=== PATIENT | female | born 1960 | race Caucasian/White ===

== ENCOUNTER 2020-06-11 20:15 | Inpatient (IN) | payer BC, MEDICAID ==
[~2020-06-11] VITALS: Ht 167.6 cm; Wt 157.9 kg
[2020-06-11] MEDS ORDERED: ACETAMINOPHEN 325 MG TAB PO ONE (20:30)
[2020-06-11 22:26] LABS: Platelet Count (auto) 35 10^3/uL (140-450)
[2020-06-11 22:28] LABS: Hematocrit 45.7 % (36.0-46.0); Hemoglobin 15.5 g/dL (12.2-16.2); Mean Corpuscular Hemoglobin 32.2 pg (28.0-32.0); Mean Corpuscular Hgb Conc. 33.8 g/dL (32.0-36.0); Mean Corpuscular Volume 95.1 fL (80.0-100.0); Red Cell Distribution Width 14.9 % (11.8-14.3)
[2020-06-11 22:35] LABS: Basophils % (manual) 0 (0.0-2.0); Blast Cells 0; Eosinophils % (manual) 0 (0-7); Metamyelocytes % 0; Promyelocytes % 0; Reactive Lymphocytes 0; White Blood Cell 1.9 10^3/uL (4.4-10.8)
[2020-06-11] MEDS ORDERED: AZITHROMYCIN 500MG/ 250ML 250 ML IV ONE (22:45)
[2020-06-11] MEDS ORDERED: methylPREDNISolone SOD SUCC 125 MG/2 ML VL IM ONE (22:45)
[2020-06-11 22:52] LABS: Albumin 2.6 g/dL (3.4-5.0); Anion Gap 2 (5-15); BUN/Creatinine Ratio 17.2; Blood Urea Nitrogen 11 mg/dL (7-18); Calcium 8.6 mg/dL (8.5-10.1); Carbon Dioxide 31 mmol/L (21-32); Chloride 107 mmol/L (98-107); GFR African American 123 mL/min; GFR Non-African American 101 mL/min; Glucose 96 mg/dL (74-106); Magnesium 1.5 mg/dL (1.6-2.6); Potassium 4.5 mmol/L (3.5-5.1); Sodium 140 mmol/L (136-145)
[2020-06-11 22:57] LABS: Alanine Aminotransferase 30 U/L (13-56); Alkaline Phosphatase 105 U/L (45-117); Aspartate Aminotransferase 72 U/L (15-37); Bilirubin, Total 1.6 mg/dL (0.2-1.0); Total Protein 7.5 g/dL (6.4-8.2)
[2020-06-11 22:58] LABS: Band Neutrophils % (manual) 2; Lymphocytes % (manual) 6 (10.0-50.0); Monocytes % (manual) 8 (0-12); Myelocytes % 2
[2020-06-11 23:12] LABS: INR 1.17 (0.9-1.15)
[2020-06-11] MEDS ORDERED: ONDANSETRON HCL 4 MG/2 ML VIAL IV PRN (23:45)
[2020-06-12] MEDS: cefTRIAXone 1GM/50ML D5W 50 ML IV SCH ×2 (02:35→23:02)
[2020-06-12 07:24] LABS: Basophils # (auto) 0 10 ^3/uL (0-0.2); Basophils % (auto) 0.2 % (0.0-2.0); Eosinophils # (auto) 0 10 ^3/uL (0-0.8); Eosinophils % (auto) 0.1 % (0.0-7.0); Lymphocytes # (auto) 0.2 10 ^3/uL (0.4-5.4); Monocytes # (auto) 0.1 10 ^3/uL (0-1.3); Monocytes % (auto) 4.6 % (0.0-12.0); Neutrophils # (auto) 1.4 10 ^3/uL (1.6-8.6); Nucleated Red Blood Cells % 0.3 %; Red Blood Cells 4.77 10^6/uL (4.0-5.20)
[2020-06-12 07:27] LABS: Hematocrit 45.1 % (36.0-46.0); Hemoglobin 15.2 g/dL (12.2-16.2); Lymphocytes % (auto) 11.1 % (10.0-50.0); Mean Corpuscular Hemoglobin 31.9 pg (28.0-32.0); Mean Corpuscular Hgb Conc. 33.8 g/dL (32.0-36.0); Mean Corpuscular Volume 94.6 fL (80.0-100.0); Platelet Count (auto) 32 10^3/uL (140-450); Red Cell Distribution Width 14.5 % (11.8-14.3)
[2020-06-12 07:39] LABS: White Blood Cell 1.6 10^3/uL (4.4-10.8)
[2020-06-12 07:42] LABS: BUN/Creatinine Ratio 19.4; Potassium 4.5 mmol/L (3.5-5.1)
[2020-06-12 08:06] LABS: Calcium 8.3 mg/dL (8.5-10.1)
[2020-06-12] MEDS: CHOLECALCIFEROL (VITD3) 2,000 UNIT CAP PO SCH (10:36)
[2020-06-12] MEDS: DexAMETHasone SOD PHOS 10MG/1ML VIAL INJ IV SCH (10:36)
[2020-06-12] MEDS: ZINC SULFATE 220mg CAP or TAB PO SCH (10:36)
[2020-06-12] MEDS: ASCORBIC ACID 500 MG TAB PO SCH ×2 (10:36→23:03)
[2020-06-12 15:55] LABS: Urine Bacteria FEW /hpf (None Seen); Urine Blood Negative /uL (Negative); Urine Hyaline Cast FEW /lpf (0 - 2); Urine Mucus FEW (None Seen); Urine Specific Gravity 1.033 (1.001-1.035); Urine WBC 11 /hpf (0 - 5)
[2020-06-12] MEDS: AZITHROMYCIN 500MG/ 250ML 250 ML IV SCH (23:03)
[2020-06-13 00:20] VITALS: BP 113/48
[2020-06-13] MEDS: ACETAMINOPHEN 325 MG TAB PO PRN ×2 (06:40→14:32)
[2020-06-13 07:25] LABS: Basophils # (auto) 0 10 ^3/uL (0-0.2); Eosinophils # (auto) 0 10 ^3/uL (0-0.8); Lymphocytes # (auto) 0.2 10 ^3/uL (0.4-5.4); Mean Corpuscular Hemoglobin 32.2 pg (28.0-32.0); Monocytes # (auto) 0.2 10 ^3/uL (0-1.3); Neutrophils # (auto) 3.3 10 ^3/uL (1.6-8.6)
[2020-06-13 07:28] LABS: Hematocrit 41.9 % (36.0-46.0); Hemoglobin 14.3 g/dL (12.2-16.2); Mean Corpuscular Volume 94.7 fL (80.0-100.0); Nucleated Red Blood Cells % 0.1 %; Platelet Count (auto) 38 10^3/uL (140-450); Red Blood Cells 4.43 10^6/uL (4.0-5.20); Red Cell Distribution Width 14.4 % (11.8-14.3); White Blood Cell 3.7 10^3/uL (4.4-10.8)
[2020-06-13 07:55] LABS: Potassium 4.8 mmol/L (3.5-5.1)
[2020-06-13 08:00] VITALS: BP 130/66
[2020-06-13 08:07] LABS: BUN/Creatinine Ratio 28.3; Calcium 8.5 mg/dL (8.5-10.1); Magnesium 2.1 mg/dL (1.6-2.6)
[2020-06-13] MEDS ORDERED: REMDESIVIR PER PHARMACY 0 ML IV SCH (09:15)
[2020-06-13] MEDS: ZINC SULFATE 220mg CAP or TAB PO SCH (10:20)
[2020-06-13] MEDS: CHOLECALCIFEROL (VITD3) 2,000 UNIT CAP PO SCH (10:20)
[2020-06-13] MEDS: DexAMETHasone SOD PHOS 10MG/1ML VIAL INJ IV SCH (10:20)
[2020-06-13] MEDS: ASCORBIC ACID 500 MG TAB PO SCH ×2 (10:20→21:11)
[2020-06-13 10:46] LABS: Albumin 2.3 g/dL (3.4-5.0); Bilirubin, Direct 0.5 mg/dL (0-0.2); Total Protein 7.2 g/dL (6.4-8.2)
[2020-06-13] MEDS ORDERED: REMDESIVIR 200 MG in NS 210ml LOADING DOSE ADULT IV ONE (15:00)
[2020-06-13 16:00] VITALS: BP 131/86
[2020-06-13] MEDS: cefTRIAXone 1GM/50ML D5W 50 ML IV SCH (21:11)
[2020-06-13] MEDS: AZITHROMYCIN 500MG/ 250ML 250 ML IV SCH (21:12)
[2020-06-14] VITALS: BP 134/78
[2020-06-14] MEDS: ACETAMINOPHEN 325 MG TAB PO PRN ×2 (03:43→10:06)
[2020-06-14 06:11] LABS: Basophils # (auto) 0 10 ^3/uL (0-0.2); Eosinophils # (auto) 0 10 ^3/uL (0-0.8); Hemoglobin 14.6 g/dL (12.2-16.2); Mean Corpuscular Hemoglobin 31.4 pg (28.0-32.0); Mean Corpuscular Volume 95.1 fL (80.0-100.0); Monocytes # (auto) 0.3 10 ^3/uL (0-1.3); White Blood Cell 3.9 10^3/uL (4.4-10.8)
[2020-06-14 06:14] LABS: Basophils % (auto) 0.9 % (0.0-2.0); Eosinophils % (auto) 0.1 % (0.0-7.0); Hematocrit 44.3 % (36.0-46.0); Lymphocytes # (auto) 0.2 10 ^3/uL (0.4-5.4); Monocytes % (auto) 7.1 % (0.0-12.0); Neutrophils # (auto) 3.4 10 ^3/uL (1.6-8.6); Neutrophils % (auto) 85.9 % (37.0-80.0); Nucleated Red Blood Cells % 0.8 %; Platelet Count (auto) 51 10^3/uL (140-450); Red Blood Cells 4.66 10^6/uL (4.0-5.20); Red Cell Distribution Width 14.6 % (11.8-14.3)
[2020-06-14 06:30] LABS: Calcium 8.6 mg/dL (8.5-10.1); Magnesium 2.2 mg/dL (1.6-2.6); Potassium 4.6 mmol/L (3.5-5.1)
[2020-06-14 06:32] LABS: BUN/Creatinine Ratio 28.8
[2020-06-14 08:00] VITALS: BP 112/78
[2020-06-14] MEDS: ZINC SULFATE 220mg CAP or TAB PO SCH (08:29)
[2020-06-14] MEDS: DexAMETHasone SOD PHOS 10MG/1ML VIAL INJ IV SCH (08:29)
[2020-06-14] MEDS: ASCORBIC ACID 500 MG TAB PO SCH ×2 (08:30→21:29)
[2020-06-14] MEDS: CHOLECALCIFEROL (VITD3) 2,000 UNIT CAP PO SCH (08:30)
[2020-06-14] MEDS: ALBUTEROL SULF HFA 90MCG INH 200DOSE IN PRN ×2 (10:27→10:29)
[2020-06-14] MEDS ORDERED: FUROSEMIDE 40 MG/4 ML VIAL IV ONE (14:45)
[2020-06-14] MEDS: REMDESIVIR 100 MG in SODIUM CHL 0.9% 250 ML IV SCH (15:58)
[2020-06-14 16:00] VITALS: BP 138/87
[2020-06-14] MEDS: cefTRIAXone 1GM/50ML D5W 50 ML IV SCH (21:29)
[2020-06-14] MEDS: AZITHROMYCIN 500MG/ 250ML 250 ML IV SCH (22:17)
[2020-06-15] VITALS: BP 117/63
[2020-06-15 08:00] VITALS: BP 127/79
[2020-06-15] MEDS: ALBUTEROL SULF HFA 90MCG INH 200DOSE IN PRN ×2 (08:09→19:24)
[2020-06-15 09:32] LABS: Albumin 2.4 g/dL (3.4-5.0); Calcium 8.6 mg/dL (8.5-10.1); Potassium 5.1 mmol/L (3.5-5.1)
[2020-06-15] MEDS: ZINC SULFATE 220mg CAP or TAB PO SCH (09:38)
[2020-06-15] MEDS: ASCORBIC ACID 500 MG TAB PO SCH ×2 (09:38→21:01)
[2020-06-15] MEDS: CHOLECALCIFEROL (VITD3) 2,000 UNIT CAP PO SCH (09:39)
[2020-06-15] MEDS: DexAMETHasone SOD PHOS 10MG/1ML VIAL INJ IV SCH (09:39)
[2020-06-15 10:32] LABS: BUN/Creatinine Ratio 21.4; Bilirubin, Total 1.3 mg/dL (0.2-1.0); Total Protein 7.3 g/dL (6.4-8.2)
[2020-06-15] MEDS: ACETAMINOPHEN 325 MG TAB PO PRN (13:54)
[2020-06-15 16:00] VITALS: BP 117/62
[2020-06-15] MEDS: REMDESIVIR 100 MG in SODIUM CHL 0.9% 250 ML IV SCH (16:17)
[2020-06-15] MEDS: cefTRIAXone 1GM/50ML D5W 50 ML IV SCH (21:01)
[2020-06-15] MEDS: AZITHROMYCIN 500MG/ 250ML 250 ML IV SCH (21:46)
[2020-06-16] VITALS: BP 117/71
[2020-06-16] MEDS: ALBUTEROL SULF HFA 90MCG INH 200DOSE IN PRN (07:14)
[2020-06-16 07:18] LABS: Basophils # (auto) 0 10 ^3/uL (0-0.2); Basophils % (auto) 0.1 % (0.0-2.0); Eosinophils # (auto) 0 10 ^3/uL (0-0.8); Hemoglobin 14.4 g/dL (12.2-16.2); Lymphocytes # (auto) 0.2 10 ^3/uL (0.4-5.4); Neutrophils # (auto) 2.1 10 ^3/uL (1.6-8.6); Nucleated Red Blood Cells % 0.1 %
[2020-06-16 07:22] LABS: Hematocrit 42.8 % (36.0-46.0); Lymphocytes % (auto) 8.1 % (10.0-50.0); Mean Corpuscular Hemoglobin 31.6 pg (28.0-32.0); Mean Corpuscular Hgb Conc. 33.7 g/dL (32.0-36.0); Mean Corpuscular Volume 93.7 fL (80.0-100.0); Monocytes # (auto) 0.2 10 ^3/uL (0-1.3); Monocytes % (auto) 8.6 % (0.0-12.0); Neutrophils % (auto) 83.2 % (37.0-80.0); Platelet Count (auto) 42 10^3/uL (140-450); Red Blood Cells 4.57 10^6/uL (4.0-5.20); Red Cell Distribution Width 14.5 % (11.8-14.3); White Blood Cell 2.5 10^3/uL (4.4-10.8)
[2020-06-16 08:00] VITALS: BP 93/59
[2020-06-16 08:14] LABS: Potassium 4.3 mmol/L (3.5-5.1)
[2020-06-16 08:45] LABS: Albumin 2.4 g/dL (3.4-5.0); BUN/Creatinine Ratio 31.4; Bilirubin, Total 1.6 mg/dL (0.2-1.0); Calcium 8.6 mg/dL (8.5-10.1); Magnesium 2.2 mg/dL (1.6-2.6); Total Protein 6.7 g/dL (6.4-8.2)
[2020-06-16] MEDS: FUROSEMIDE 40 MG/4 ML VIAL IV ONE ×2 (09:35→10:43)
[2020-06-16] MEDS: CHOLECALCIFEROL (VITD3) 2,000 UNIT CAP PO SCH (09:36)
[2020-06-16] MEDS: DexAMETHasone SOD PHOS 10MG/1ML VIAL INJ IV SCH (09:36)
[2020-06-16] MEDS: ENOXAPARIN SOD 40 MG/0.4 ML SYRINGE SC SCH ×2 (09:36→10:00)
[2020-06-16] MEDS: ASCORBIC ACID 500 MG TAB PO SCH ×2 (09:36→21:52)
[2020-06-16] MEDS: ZINC SULFATE 220mg CAP or TAB PO SCH (09:36)
[2020-06-16] MEDS: REMDESIVIR 100 MG in SODIUM CHL 0.9% 250 ML IV SCH (15:18)
[2020-06-16 16:00] VITALS: BP 137/89
[2020-06-16] MEDS: cefTRIAXone 1GM/50ML D5W 50 ML IV SCH (21:51)
[2020-06-16] MEDS: AZITHROMYCIN 500MG/ 250ML 250 ML IV SCH (21:52)
[2020-06-16] MEDS: ACETAMINOPHEN 325 MG TAB PO PRN (22:29)
[2020-06-16 23:51] VITALS: BP 119/69
[2020-06-16 23:52] VITALS: BP 119/69
[2020-06-17 08:00] VITALS: BP 95/56
[2020-06-17 08:01] LABS: Albumin 2.3 g/dL (3.4-5.0); Calcium 8.3 mg/dL (8.5-10.1); Potassium 4.3 mmol/L (3.5-5.1)
[2020-06-17 08:27] LABS: Basophils # (auto) 0 10 ^3/uL (0-0.2); Bilirubin, Total 1.8 mg/dL (0.2-1.0); Eosinophils # (auto) 0 10 ^3/uL (0-0.8); Hemoglobin 14.7 g/dL (12.2-16.2); Lymphocytes # (auto) 0.2 10 ^3/uL (0.4-5.4); Monocytes # (auto) 0.4 10 ^3/uL (0-1.3); Monocytes % (auto) 12.7 % (0.0-12.0); Neutrophils # (auto) 2.8 10 ^3/uL (1.6-8.6); Nucleated Red Blood Cells % 0.2 %; Total Protein 6.6 g/dL (6.4-8.2)
[2020-06-17 08:29] LABS: Basophils % (auto) 0.2 % (0.0-2.0); Eosinophils % (auto) 0.1 % (0.0-7.0); Hematocrit 43.8 % (36.0-46.0); Lymphocytes % (auto) 5.9 % (10.0-50.0); Mean Corpuscular Hemoglobin 31.7 pg (28.0-32.0); Mean Corpuscular Hgb Conc. 33.7 g/dL (32.0-36.0); Mean Corpuscular Volume 94.2 fL (80.0-100.0); Neutrophils % (auto) 81.1 % (37.0-80.0); Red Blood Cells 4.64 10^6/uL (4.0-5.20); Red Cell Distribution Width 14.1 % (11.8-14.3); White Blood Cell 3.4 10^3/uL (4.4-10.8)
[2020-06-17 08:35] LABS: Platelet Count (auto) 44 10^3/uL (140-450)
[2020-06-17] MEDS: ENOXAPARIN SOD 40 MG/0.4 ML SYRINGE SC SCH (10:00)
[2020-06-17] MEDS ORDERED: FUROSEMIDE 40 MG/4 ML VIAL IV SCH (10:00)
[2020-06-17] MEDS: DexAMETHasone SOD PHOS 10MG/1ML VIAL INJ IV SCH (10:03)
[2020-06-17] MEDS: ASCORBIC ACID 500 MG TAB PO SCH ×2 (10:03→21:38)
[2020-06-17] MEDS: ZINC SULFATE 220mg CAP or TAB PO SCH (10:03)
[2020-06-17] MEDS: CHOLECALCIFEROL (VITD3) 2,000 UNIT CAP PO SCH (10:04)
[2020-06-17] MEDS: REMDESIVIR 100 MG in SODIUM CHL 0.9% 250 ML IV SCH (15:36)
[2020-06-17 16:00] VITALS: BP 151/83
[2020-06-17 16:09] VITALS: BP 151/83
[2020-06-17] MEDS: ALBUTEROL SULF HFA 90MCG INH 200DOSE IN PRN (18:22)
[2020-06-17] MEDS: AZITHROMYCIN 500MG/ 250ML 250 ML IV SCH (21:38)
[2020-06-17] MEDS: cefTRIAXone 1GM/50ML D5W 50 ML IV SCH (23:07)
[2020-06-17 23:44] VITALS: BP 120/67
[2020-06-18 07:30] VITALS: BP 114/69
[2020-06-18 08:00] VITALS: BP 114/69
[2020-06-18] MEDS: ENOXAPARIN SOD 40 MG/0.4 ML SYRINGE SC SCH (10:00)
[2020-06-18] MEDS: ASCORBIC ACID 500 MG TAB PO SCH ×2 (10:03→21:13)
[2020-06-18] MEDS: DexAMETHasone SOD PHOS 10MG/1ML VIAL INJ IV SCH (10:03)
[2020-06-18] MEDS: CHOLECALCIFEROL (VITD3) 2,000 UNIT CAP PO SCH (10:03)
[2020-06-18] MEDS: ZINC SULFATE 220mg CAP or TAB PO SCH (10:03)
[2020-06-18 16:00] VITALS: BP 125/71
[2020-06-18] MEDS: SPIRONOLACTONE 25 MG TAB PO SCH (17:33)
[2020-06-18] MEDS: rifAXIMin 550 MG TAB PO SCH (17:33)
[2020-06-18] MEDS: ALBUTEROL SULF HFA 90MCG INH 200DOSE IN PRN (17:38)
[2020-06-18] MEDS: cefTRIAXone 1GM/50ML D5W 50 ML IV SCH (20:59)
[2020-06-18] MEDS: AZITHROMYCIN 500MG/ 250ML 250 ML IV SCH (21:13)
[2020-06-18] MEDS: FAMOTIDINE (10MG/ML) 2ML VL IV SCH (21:13)
[2020-06-19] VITALS: BP 123/59
[2020-06-19 07:08] LABS: Basophils # (auto) 0 10 ^3/uL (0-0.2); Eosinophils # (auto) 0 10 ^3/uL (0-0.8); Hematocrit 43.5 % (36.0-46.0); Hemoglobin 14.6 g/dL (12.2-16.2); Lymphocytes # (auto) 0.2 10 ^3/uL (0.4-5.4); Lymphocytes % (auto) 5.3 % (10.0-50.0); Mean Corpuscular Hemoglobin 31.6 pg (28.0-32.0); Mean Corpuscular Hgb Conc. 33.5 g/dL (32.0-36.0); Mean Corpuscular Volume 94.3 fL (80.0-100.0); Monocytes # (auto) 0.5 10 ^3/uL (0-1.3); Neutrophils # (auto) 3.4 10 ^3/uL (1.6-8.6); Neutrophils % (auto) 83.7 % (37.0-80.0); Nucleated Red Blood Cells % 0.1 %; Platelet Count (auto) 40 10^3/uL (140-450); Red Blood Cells 4.61 10^6/uL (4.0-5.20); Red Cell Distribution Width 14.2 % (11.8-14.3); White Blood Cell 4.1 10^3/uL (4.4-10.8)
[2020-06-19 07:10] LABS: Potassium 4.3 mmol/L (3.5-5.1)
[2020-06-19 07:27] LABS: INR 1.32 (0.9-1.15); Partial Thromboplastin Time 28.6 sec (23.0-31.2)
[2020-06-19 07:30] LABS: Albumin 2.3 g/dL (3.4-5.0); BUN/Creatinine Ratio 31.3; Bilirubin, Total 2.1 mg/dL (0.2-1.0); CRP High Sensitivity 0.34 mg/dL (< 0.3); Calcium 8.4 mg/dL (8.5-10.1); Total Protein 6.3 g/dL (6.4-8.2)
[2020-06-19 08:04] VITALS: BP 117/90
[2020-06-19] MEDS: LACTULOSE 20Gm/30ML SOLN PO SCH (10:40)
[2020-06-19] MEDS: FAMOTIDINE (10MG/ML) 2ML VL IV SCH ×2 (10:41→23:35)
[2020-06-19] MEDS: ZINC SULFATE 220mg CAP or TAB PO SCH (10:41)
[2020-06-19] MEDS: rifAXIMin 550 MG TAB PO SCH ×2 (10:41→22:28)
[2020-06-19] MEDS: ASCORBIC ACID 500 MG TAB PO SCH ×2 (10:41→22:28)
[2020-06-19] MEDS: DexAMETHasone SOD PHOS 10MG/1ML VIAL INJ IV SCH (10:41)
[2020-06-19] MEDS: CHOLECALCIFEROL (VITD3) 2,000 UNIT CAP PO SCH (10:42)
[2020-06-19] MEDS ORDERED: IOHEXOL 350 MG/ML 100ML IJ ONE (10:43)
[2020-06-19 16:10] VITALS: BP 123/84
[2020-06-19] MEDS: SPIRONOLACTONE 25 MG TAB PO SCH (17:49)
[2020-06-19 22:15] VITALS: BP 108/50
[2020-06-19] MEDS: AZITHROMYCIN 500MG/ 250ML 250 ML IV SCH (22:28)
[2020-06-19] MEDS: cefTRIAXone 1GM/50ML D5W 50 ML IV SCH (22:28)
[2020-06-20] VITALS: BP 108/50
[2020-06-20 08:00] VITALS: BP 97/56
[2020-06-20] MEDS: FAMOTIDINE (10MG/ML) 2ML VL IV SCH ×2 (09:44→21:37)
[2020-06-20] MEDS: CHOLECALCIFEROL (VITD3) 2,000 UNIT CAP PO SCH (09:44)
[2020-06-20] MEDS: DexAMETHasone SOD PHOS 10MG/1ML VIAL INJ IV SCH (09:44)
[2020-06-20] MEDS: rifAXIMin 550 MG TAB PO SCH ×2 (09:44→21:37)
[2020-06-20] MEDS: ZINC SULFATE 220mg CAP or TAB PO SCH (09:44)
[2020-06-20] MEDS: LACTULOSE 20Gm/30ML SOLN PO SCH ×2 (09:44→10:24)
[2020-06-20] MEDS: ASCORBIC ACID 500 MG TAB PO SCH ×2 (09:44→21:38)
[2020-06-20] MEDS: SPIRONOLACTONE 25 MG TAB PO SCH (18:01)
[2020-06-20] MEDS: AZITHROMYCIN 500MG/ 250ML 250 ML IV SCH (21:38)
[2020-06-20] MEDS: cefTRIAXone 1GM/50ML D5W 50 ML IV SCH (21:38)
[2020-06-21] VITALS: BP 109/69
[2020-06-21] MEDS: ALBUTEROL SULF HFA 90MCG INH 200DOSE IN PRN ×2 (07:07→18:52)
[2020-06-21 08:00] VITALS: BP 114/54
[2020-06-21] MEDS: DexAMETHasone SOD PHOS 10MG/1ML VIAL INJ IV SCH (09:02)
[2020-06-21] MEDS: FAMOTIDINE (10MG/ML) 2ML VL IV SCH ×2 (09:02→23:12)
[2020-06-21] MEDS: LACTULOSE 20Gm/30ML SOLN PO SCH (09:02)
[2020-06-21] MEDS: rifAXIMin 550 MG TAB PO SCH ×2 (09:03→23:13)
[2020-06-21] MEDS: ZINC SULFATE 220mg CAP or TAB PO SCH (09:03)
[2020-06-21] MEDS: ASCORBIC ACID 500 MG TAB PO SCH ×2 (09:03→23:12)
[2020-06-21] MEDS: CHOLECALCIFEROL (VITD3) 2,000 UNIT CAP PO SCH (10:00)
[2020-06-21] MEDS ORDERED: FURO40TA4 PO (15:54)
[2020-06-21] MEDS ORDERED: LACT10SO3 PO (15:54)
[2020-06-21] MEDS ORDERED: SPIR100T4 PO (15:54)
[2020-06-21] MEDS ORDERED: RIFA550T PO (15:54)
[2020-06-21] MEDS ORDERED: ALBUAER3 IN (15:55)
[2020-06-21 16:00] VITALS: BP 103/46
[2020-06-21] MEDS: SPIRONOLACTONE 25 MG TAB PO SCH (18:38)
[2020-06-21] MEDS: AZITHROMYCIN 500MG/ 250ML 250 ML IV SCH (23:12)
[2020-06-21] MEDS: cefTRIAXone 1GM/50ML D5W 50 ML IV SCH (23:12)
[2020-06-22] VITALS: BP 107/64
[2020-06-22 08:00] VITALS: BP 94/41
[2020-06-22] MEDS: ASCORBIC ACID 500 MG TAB PO SCH (09:51)
[2020-06-22] MEDS: ZINC SULFATE 220mg CAP or TAB PO SCH (09:51)
[2020-06-22] MEDS: LACTULOSE 20Gm/30ML SOLN PO SCH (09:51)
[2020-06-22] MEDS: rifAXIMin 550 MG TAB PO SCH (09:51)
[2020-06-22] MEDS: DexAMETHasone SOD PHOS 10MG/1ML VIAL INJ IV SCH (09:51)
[2020-06-22] MEDS: FAMOTIDINE (10MG/ML) 2ML VL IV SCH (09:51)
[2020-06-22] MEDS: CHOLECALCIFEROL (VITD3) 2,000 UNIT CAP PO SCH (09:51)
[2020-06-22 16:00] VITALS: BP 128/57
[2020-06-22] MEDS: SPIRONOLACTONE 25 MG TAB PO SCH ×2 (17:59→18:00)
== END 2020-06-22 20:35 | disposition home health service (06) | DRG 137 ==
LOC: EDBD 20:15 → ER 20:15 → TELE 20:16 → TELE-WESTW 06-12 22:44
PROVIDERS: ADMIT Hospitalist; ATTEND Hospitalist
PROC: XW033E5 Introduction of Remdesivir Anti-infective into Peripheral Vein, Percutaneous Approach, New Technology Group 5 (ICD-10-PCS; principal; 2020-06-13)
DX: U07.1 COVID-19 (principal); J96.01 Acute respiratory failure with hypoxia; J12.82 Pneumonia due to coronavirus disease 2019; B18.2 Chronic viral hepatitis C; J15.9 Unspecified bacterial pneumonia; D72.819 Decreased white blood cell count, unspecified; K74.60 Unspecified cirrhosis of liver; E44.1 Mild protein-calorie malnutrition; Z68.43 Body mass index [BMI] 50.0-59.9, adult; E66.01 Morbid (severe) obesity due to excess calories; D69.59 Other secondary thrombocytopenia; Z80.0 Family history of malignant neoplasm of digestive organs; Z80.41 Family history of malignant neoplasm of ovary; Z91.19 Patient's noncompliance with other medical treatment and regimen; R79.89 Other specified abnormal findings of blood chemistry; R74.01 Elevation of levels of liver transaminase levels; Z88.5 Allergy status to narcotic agent
CPT/HCPCS: 36415; 36600; 71045; 80048; 80053; 80076; 81001; 82728; 82805; 83735; 83880; 84484; 85007; 85025; 85027; 85379; 85610; 85730; 86141; 87040; 87070; 87426; 87804; 87880; 93005; 93970; 94640; 96365; 96367; 96368; 96372; 96375; G0378; J0696; J1100; J3490